=== PATIENT | male | born 1985 | race Caucasian/White ===

== ENCOUNTER 2020-01-08 03:19 | Emergency (ER) | payer MEDICAID, OTHER ==
[~2020-01-08] VITALS: Ht 162.6 cm; Wt 63.5 kg
[2020-01-08 03:24] VITALS: BP 126/76
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
[2020-01-08] MEDS ORDERED: IBUPROFEN 400 MG TABLET PO ONE (03:30)
[2020-01-08] MEDS ORDERED: IBUPROFEN 400 MG TABLET ONE (03:34)
[2020-01-08] MEDS ORDERED: KETOROLAC TROMETHAMINE INJ 30 MG/ML VIAL ONE (03:37)
[2020-01-08] MEDS ORDERED: KETOROLAC TROMETHAMINE INJ 60 MG/2 ML VIAL IM ONE (04:00)
--- NOTE | 2020-01-08 04:38 | NUR ---
Patient discharged to home in stable condition. Written and verbal after care instructions given. Patient verbalizes understanding of instruction.
== END 2020-01-08 04:40 | disposition home or self-care (01) ==
LOC: ER 03:21
DX: K02.9 Dental caries, unspecified (principal); Z91.030 Bee allergy status
CPT/HCPCS: 96372; 99283; J1885

== ENCOUNTER 2020-01-13 19:45 | Emergency (ER) | payer MEDICAID ==
[~2020-01-13] VITALS: Ht 170.2 cm; Wt 67.6 kg
[2020-01-13 20:09] VITALS: BP 122/76
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
[2020-01-13] MEDS ORDERED: HYDROCODONE/APAP 10/325MG 1 EA TABLET ONE (20:32)
--- NOTE | 2020-01-13 20:40 | NUR ---
PT IS TAKING THE BUS HOME.
[2020-01-13] MEDS ORDERED: HYDROCODONE/APAP 10/325MG 1 EA TABLET PO ONE (21:00)
== END 2020-01-13 20:41 | disposition home or self-care (01) ==
LOC: ER 19:52
DX: K02.9 Dental caries, unspecified (principal); Z91.030 Bee allergy status